=== PATIENT | male | born 2000 | race Caucasian/White ===

== ENCOUNTER 2021-11-25 11:55 | Emergency (ER) | payer OTHER, SELFPAY ==
[2021-11-25 11:55] VITALS: BP 164/81; PULSE 73; RESP 14; TEMP 36.2; O2SAT 97; BMI 24.7
--- NOTE | 2021-11-25 12:15 | RAD_ITS ---
STUDY: X-RAY - RIGHT FOOT CLINICAL: Male, 21 years old. trauma, pain PAIN AFTER PLAYING SOCCERx1 WEEK TECHNIQUE: 3 view(s) of the foot. COMPARISON: None. FINDINGS: Normal talus, calcaneus, and tarsal bones. Normal visualized subtalar, talonavicular, calcaneocuboid, tarsal and tarsometatarsal articulations. Normal metatarsi. Normal metatarsophalangeal joint of the great toe. Normal tibial and fibular sesamoid bones. Normal interphalangeal joint of the great toe. Normal phalanges of the great toe. Normal second through fifth metatarsophalangeal joints. Normal interphalangeal joints and phalanges of the lesser toes. The soft tissue structures are unremarkable. There is no demonstrated fracture. RAD/Foot min 3 Views IMPRESSION: Normal x-ray examination of the foot. Electronically Signed: Jairon New MD at 12:40 EDT ,
--- NOTE | 2021-11-25 12:18 | EX.ED.DYSGE1 ---
HPI History of Present Illness Chief Complaint: Lower Extremity Injury Informant: patient Narrative Narrative: This is a healthy male who presents to the emergency department with a week of right distal foot pain mostly dorsally. He thinks he hurt it playing soccer a week ago. It was getting better. He played soccer again today and is worse. Kicking or running makes it worse and rest makes it better. No other areas of pain. PFSH PFSH Home Medications naproxen 500 mg PO BID #14 tab 11/25/21 [Rx Last Taken Unknown] Allergy/AdvReac Type Severity Reaction Status Date / Time No Known Allergies Allergy Verified 11/25/21 11:57 Social History Smoking Status: Never smoker ROS ROS ED Constitutional Constitutional ED: Denies chills or fever(s) Musculoskeletal Musculoskeletal: Reports arthralgias and other Details: See history of present illness. Integumentary Denies Abrasions or rash Neurologic Neurologic: Denies paresthesias or weakness EXAM Physical Exam Const Vital Signs: 11/25/21 11:55 Temperature 97.2 F L Temperature Source Temporal Pulse Rate 73 Respiratory Rate 14 Blood Pressure 164/81 H Blood Pressure Mean 108 Pulse Ox 97 Oxygen Delivery Method Room Air Positive well nourished and well developed General Appearance ED: well developed and NAD Resp normal respiratory effort Back/Spine Lumbar Spine / Lower Back: Negative for lumbar spinal tenderness Extremity normal to inspection Extremity Narrative: Foot shows no sign of notable swelling or contusions. There is some mild nonfocal tenderness to the distal aspect of his right foot mostly overlying second third and fourth distal metatarsal. No erythema. No sign of fungal infection. There is no tenderness at the proximal fifth metatarsal. No tenderness at the ankle leg or knee. No swelling. Neuro no sensory deficits noted Sensorium / Orientation: alert Skin no rashes or lesions noted, no wounds and skin turgor normal MDM MDM MDM Narrative Medical decision making narrative: Three-view x-ray of the patient's foot looked at by me and read by radiology shows no acute process. I see no fracture. I do not see any periosteal elevation consistent with stress type fracture although this could occur later. Patient should use rice therapy. We will write for some Naprosyn. If it still bothering him in a week or so it should be maggy-rayed looking for stress fracture. He should limit activity until that time. At this point he appears to have a right ligamentous foot strain. Although stress fracture is not completely ruled out because of the timing. Diagnosis: Right ligamentous foot strain Radiography Diagnostic Testing: Clinical Impression(s) from Imaging Studies Foot X-Ray 11/25/21 12:15 IMPRESSION: Normal x-ray examination of the foot. Electronically Signed: Jairon New MD at 12:40 EDT Reading Location ID and State: [facility] / [place] , Service support , Discharge Plan Triage Chief Complaint: Lower Extremity Injury ED Provider: Mervin Coleman Dx/Rx/DC Orders Clinical Impression: Right foot strain Instructions: ED Foot Sprain Prescriptions: New naproxen 500 MG tablet 500 mg PO BID Qty: 14 RF: 0 Primary Care Provider: Roseline Iqbal Referrals: Roseline Iqbal MD [Primary Care Provider] - 1 Week if not improving Disposition Disposition: Home, Self Care
== END 2021-11-25 13:20 | disposition home or self-care (01) ==
PROVIDERS: Emergency Provider Emergency Medicine; PCP Pediatrics; Visit Provider Emergency Medicine
DX: S93.601A Unspecified sprain of right foot, initial encounter (principal); X58.XXXA Exposure to other specified factors, initial encounter; Y93.66 Activity, soccer; Y99.8 Other external cause status
CPT/HCPCS: 73630; 99282

== ENCOUNTER 2023-08-04 17:00 | Emergency (ER) | payer OTHER, SELFPAY ==
[2023-08-04 17:01] VITALS: BP 147/75; PULSE 61; RESP 18; TEMP 36.9; O2SAT 100; BMI 27.0
--- NOTE | 2023-08-04 19:19 | ED.RN ---
Pt came to triage desk and stated he was leaving.
== END 2023-08-04 19:21 | disposition left against medical advice (07) ==
LOC: ED 19:20
PROVIDERS: PCP Pediatrics
DX: Z53.21 Procedure and treatment not carried out due to patient leaving prior to being seen by health care provider (principal)

== ENCOUNTER 2024-04-14 08:20 | Emergency (ER) | payer OTHER, SELFPAY ==
[2024-04-14 08:20] VITALS: PULSE 74; RESP 16; TEMP 35.8; O2SAT 97; BMI 27.8
--- NOTE | 2024-04-14 08:25 | RAD_ITS ---
STUDY: X-RAY CHEST REASON FOR EXAM: Male, 24 years old. 2 day history of right-sided chest pain. TECHNIQUE: PA and lateral views of the chest. COMPARISON: None. FINDINGS: The lungs are clear and expanded. There is no demonstrated pleural abnormality. Normal size heart. Normal mediastinum and solis. Normal visualized pulmonary arteries. Normal visualized aortic arch and descending thoracic aorta. Normal visualized thoracic spine. Normal visualized ribs, clavicles, and shoulders. There is no demonstrated abnormality of the visualized soft tissue structures of the upper abdomen. RAD/Chest PA and Lateral IMPRESSION: Normal x-ray examination of the chest. Electronically Signed: Lawrence Graf MD at 9:01 EDT ,
--- NOTE | 2024-04-14 08:25 | EKG12_ITS ---
Test Reason : CP Blood Pressure : / mmHG Vent. Rate : 066 BPM Atrial Rate : 066 BPM P-R Int : 172 ms QRS Dur : 080 ms QT Int : 392 ms P-R-T Axes : 080 088 051 degrees QTc Int : 410 ms Normal sinus rhythm Normal ECG Confirmed by Sterling Ugalde ([id number]), primer expeditor and drier SHERRI GRIMES ([id number]) on 04/15/2024 9:13:29 AM Referred By: Confirmed By:Sterling Ugalde
--- NOTE | 2024-04-14 08:29 | NURSING ---
NO OLD EKGS
--- NOTE | 2024-04-14 08:37 | EDS_ITS ---
HPI History of Present Illness Chief Complaint: Chest Pain Informant: patient Onset/Context/Timing Onset: Days Activity at onset: gradual Timing: Continuous Quality: Positive for Aching Current Severity: Mild Maximum Severity: Mild Worsened By: Breathing Relieved By: Nothing Associated Symptoms: Negative for Nausea, Vomiting, Diaphoresis, Dyspnea, Cough, Fever, Lightheadedness, Acid Reflux or Palpitations Narrative Narrative: Healthy 23-year-old male whose had right-sided chest discomfort for the last 3 days beginning Friday morning. Denies any fall injury or trauma. 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 With physical use in the trauma. Is not having any exertional dyspnea or exertional chest pain. Feels like a soreness on the right side of his chest. Worse with a deep breath. He does not feel short of breath. No history of DVT or PE. No family history of clots. He has had no recent travel, surgery or immobilization. He said no calf pain or swelling. Prior Similar Symptoms: No Recent Illness/Hospitalization: No CVD Risk Factors: Negative for Hypertension, Diabetes, Hypercholesterolemia, Family History 1' </=55 or Smoking PE Risk Factors: Negative for Recent Travel/Surgery, Recent Immobilization, Prior DVT or PE, Cancer or OCP + Smoking + >/=35 TAD Risk Factors: Negative for Marfan's Syndrome PFSH PFSH Medical History no medical history no medical history Home Medications ?Medication ?Instructions ?Recorded ?Last Taken ?Type naproxen 500 mg tablet 500 mg PO BID #14 tabs 11/25/21 Unknown Rx Allergy/AdvReac Type Severity Reaction Status Date / Time No Known Allergies Allergy Verified 04/14/24 08:22 Social History Smoking Status: Never smoker ROS ROS ED ROS Narrative Denies recent illness. No significant cough or fever. No shortness of breath. No exertional symptoms. Constitutional Constitutional ED: Denies chills or fever(s) Eyes Eyes: Reports none ENT ENT ED: Denies ear pain Cardiovascular Cardiovascular: Reports as per HPI and chest pain; Denies palpitations or racing heartbeat Respiratory/Chest Respiratory/Chest: Denies cough or dyspnea Gastrointestinal Gastrointestinal: Denies abdominal pain Genitourinary Genitourinary ED: Denies dysuria or hematuria Musculoskeletal Musculoskeletal: Denies arthralgias or back pain Integumentary Denies abscess or Abrasions Neurologic Neurologic: Denies headache(s) Psychiatric Psychiatric: Denies anxiety or depression Endocrine Endocrinology: Denies cold intolerance Hematologic/Lymphatic Hematologic/Lymphatic: Denies easy bleeding Allergic/Immunologic Allergic/Immunologic ED: Denies mouth swelling EXAM Physical Exam Narrative Exam Narrative: Well-appearing 24-year-old male. Vital signs stable afebrile. Pulse ox 97% on room air. No signs of hypoxia. H EENT exam normal. Neck nontender JVD. Lungs with auscultation bilaterally. Heart regular rate rhythm no murmur. Chest wall mild discomfort with palpating his right chest no redness or warmth no bruising. No signs of trauma or contusions. No rib abnormalities. No crepitance. Abdomen soft nontender. Moving all 4 extremities. Radial pulses equal and symmetrical. Calves are nontender without edema or cords. Neurologically is awake and alert with no focal motor deficits. Benign exam. Const Vital Signs: 04/14/24 08:20 04/14/24 08:35 04/14/24 09:20 Temperature 96.5 F L Temperature Source Temporal Pulse Rate 74 72 Respiratory Rate 16 15 Respiratory Effort Normal Non-Labored Blood Pressure 124/56 H Blood Pressure Mean 78 Pulse Ox 97 98 Oxygen Delivery Method Room Air Room Air 04/14/24 09:36 04/14/24 10:00 Temperature Temperature Source Pulse Rate 53 L Respiratory Rate 16 Respiratory Effort Blood Pressure 123/64 H Blood Pressure Mean 83 Pulse Ox 97 98 Oxygen Delivery Method Room Air Room Air Positive well nourished and well developed; Negative for obese, cachectic, contractures or unkempt General Appearance ED: well developed and NAD; Negative for unkempt, cachectic, contractures or pallor Nutritional Appearance: Negative for cachectic or obese HEENT Reports moist mucous membranes normocephalic and atraumatic; Negative for trauma or tenderness Eyes PERRL and EOMs intact bilaterally General Eye ED: Negative for pale conjunctiva or scleral icterus Neck no lymphadenopathy, supple and no JVD General: Negative for tenderness or other Chest Wall inspection of chest normal and palpation of chest normal Chest Narrative: Mild tenderness right chest wall. No signs of trauma. No bruising. No crepitance. No redness or warmth. Chest: tenderness Resp normal respiratory effort and clear to auscultation bilaterally Effort and Inspection: Negative for respiratory distress Auscultation: Negative for rales, rhonchi, wheezes or diminished lung sounds Cardio regular rate, regular rhythm, S1 normal heart sound, S2 normal heart sound and no murmurs Rate: Negative for bradycardia or tachycardic Rhythm: Negative for abnormal rhythm Peripheral Pulses: pulses 2+ throughout GI normal to inspection, nondistended, normoactive bowel sounds, soft to palpation, non-tender, non-distended and no masses Back/Spine no CVA tenderness and no thoracic nor lumbar tenderness General Back: Negative for CVA tenderness Cervical Spine: Negative for cervical spine tenderness Extremity normal to inspection General Extremety ED: Negative for edema, pulses abnormal or tenderness General Extremity: Negative for edema or pulses abnormal Neuro oriented x3 and CN's II-XII intact bilaterally Sensorium / Orientation: awake, alert, oriented to person, oriented to place and oriented to time; Negative for confused or lethargic Motor Exam: strength 5/5 throughout Psych mental status grossly normal Appearance: Negative for unkempt Attitude: No agitated Mood & Affect: Negative for depressed, anxious or tearful Skin no rashes or lesions noted and no wounds General Skin Exam: Negative for jaundice or pallor Rashes: No rashes noted Trauma: Negative for abrasion or laceration Heart Score History: Slightly/Non-Suspicious ECG: Normal Age: </= 45 years Risk Factors: No Risk Factors Troponin: </= Normal Limit Score: 0 MDM MDM MDM Narrative Medical decision making narrative: 24-year-old male atypical right-sided chest discomfort may be just chest wall strain. Is some mild tenderness. Is not very impressive. He has got no cardiac history or risk factors is gone no family history of clotting disorders nor any risk factors for DVT or PE or prior history. Undergo cardiac workup. He does state that he takes Motrin at home and improves it when the Motrin wears off the discomfort returns. Repeat exam patient is doing well at 10:35 AM. No specific cause for his discomfort may be musculoskeletal chest wall pain he does have some mild discomfort with deep palpation. Motrin and Tylenol for pain. Follow-up if not improving. Return if worse. History & Record Review Discussion w/independent historian: Patient Additional record(s) reviewed:: Prior inpatient record, Prior outpatient record, Prior ED visit and Prior labs Lab Data Attestation: I reviewed the patient's lab results. Lab results narrative: CBC normal. White count of 5. H&H 15 and 45. Platelets 250. Chemistries normal 4. BUN 27 creatinine 1.1. Glucose 100. Troponin 4. And D- dimer less than 0.27. Labs: Laboratory Results - last 24 hr 04/14/24 09:47 WBC 5.9 RBC 5.32 Hgb 15.6 Hct 44.5 MCV 83.6 MCH 29.3 MCHC 35.1 RDW Std Deviation 36.3 RDW Coeff of Patricia 12.0 Plt Count 250 MPV 9.5 Immature Gran % (Auto) 0.300 Neut % (Auto) 54.6 Lymph % (Auto) 33.4 Petroleum % (Auto) 9.8 Eos % (Auto) 1.2 Baso % (Auto) 0.7 Absolute Neuts (auto) 3.2 Absolute Lymphs (auto) 1.97 Nucleated RBC % 0 D-Dimer Quant (PE/DVT) < 0.27 L Sodium 141 Potassium 4.2 Chloride 109 H Carbon Dioxide 28.0 Anion Gap 4 L BUN 27 H Creatinine 1.16 Estim Creat Clear Calc 117.41 Est GFR (MDRD) Af Amer 100 Est GFR (MDRD) Non-Af 83 BUN/Creatinine Ratio 23.3 H Glucose 100 Calcium 9.0 Troponin I High Sens 4 Radiography Chest X-Ray - ED: 2 View, Read by ED Physician, Read by Radiologist, Normal, Heart, Lungs, Mediastinum, Bony Structures and No Acute Disease Diagnostic Testing: Clinical Impression(s) from Imaging Studies Chest X-Ray 04/14/24 08:25 IMPRESSION: Normal x-ray examination of the chest. Electronically Signed: Lawrence Graf MD at 9:01 EDT , Chest x-ray, 2 views AP and lateral, interpreted by myself and the radiologist shows normal cardiac silhouette. Normal lung murillo. No pneumothorax. No infiltrate. Rhythm Strip Rhythm Strip: Sinus Rhythm Rate: 66 Ectopy: None EKG Initial EKG: Attestation: I personally reviewed and interpreted this EKG as follows: Interpretation: Sinus Rhythm and No Acute Injury Pattern Comments: Normal sinus rhythm rate of 66 no acute WA no ischemia. Prior EKG tracings: not available for review Prior: No Prior Discharge Plan Triage Chief Complaint: Chest Pain ED Provider: Larry Calvillo Dx/Rx/DC Orders Clinical Impression: Chest pain, Chest wall muscle strain Instructions: ED Chest Wall Strain Prescriptions: No Action naproxen 500 MG tablet 500 mg PO BID Qty: 14 0RF Primary Care Provider: Care Physician,No Primary Referrals: Roseline Iqbal MD [Non-Staff] - As Needed Activity Restrictions/Additional Instructions: Your tests are all normal. Including your EKG and chest x-ray and lab work. This may be a strain of your chest wall. Motrin for pain and inflammation and Tylenol for pain. Ice to your chest wall. Follow-up with your doctor if not improving. Print Language: Arabic Disposition Disposition: Home, Self Care
--- NOTE | 2024-04-14 08:39 | NURSING ---
NO OLD EKGS
[2024-04-14 09:20] VITALS: BP 124/56; PULSE 72; RESP 15; O2SAT 98
[2024-04-14 09:36] VITALS: O2SAT 97
[2024-04-14 09:56] LABS: Absolute Lymphocyte Count 1.97 X10^3/uL (0.83-4.51); Absolute Neutrophil Count 3.2 X10^3/uL (2.0-7.7); Basophil# 0.04 X10^3/uL; Basophil% 0.7 % (0-1); Eosinophil# 0.07 X10^3/uL; Eosinophils% 1.2 % (0-5); Hematocrit 44.5 % (40-54); Hemoglobin 15.6 g/dL (13.0-16.5); Lymphocyte # 1.97 X10^3/ul (0.83-4.51); Lymphocyte % 33.4 % (19-41); Mean Corp Hgb Conc 35.1 g/dL (32-36); Mean Corpuscular Hgb 29.3 pg (27.0-32.0); Mean Corpuscular Volume 83.6 fL (80-94); Mean Platelet Vol. 9.5 fl (6.2-12.0); Monocyte# 0.58 X10^3/uL; Monocyte% 9.8 % (0-10); NRBC Flagged by Analyzer 0 % (0-5); Neutrophil # 3.21 X10^3/uL (2.7-7.7); Neutrophil % 54.6 % (47-70); Platelet Count 250 K/mm3 (150-450); RBC Distribution Width SD 36.3 fl (35.1-43.9); Red Blood Count 5.32 M/mm3 (4.6-6.2); White Blood Count 5.9 K/mm3 (4.4-11.0)
[2024-04-14 10:00] VITALS: BP 123/64; PULSE 53; RESP 16; O2SAT 98
[2024-04-14 10:13] LABS: Anion Gap 4 (5-15); BUN 27 mg/dL (7-18); BUN/Creat Ratio 23.3 RATIO (10-20); Chloride 109 mmol/L (98-107); Creatinine, Serum 1.16 mg/dL (0.70-1.30); D-Dimer Quantitative (DVT/PE) < 0.27 FEU/ug/m (0.27-0.49); EST Glomerular Filtration Rate 83 mL/min (>60); Est Glom Filt Rate - Afr Amer 100 mL/min (>60); Estimated Creatinine Clearance 117.41 ml/min; Glucose 100 mg/dL (74-106); Potassium 4.2 mmol/L (3.5-5.1); Sodium Level 141 mmol/L (136-145); Troponin-I HS 4 pg/mL (3.0-78.0)
[2024-04-14 10:42] VITALS: BP 131/73; PULSE 51; RESP 18; TEMP 36.3; O2SAT 98
== END 2024-04-14 10:46 | disposition home or self-care (01) ==
PROVIDERS: Emergency Provider Emergency Medicine; Visit Provider Emergency Medicine
DX: S29.011A Strain of muscle and tendon of front wall of thorax, initial encounter (principal); X58.XXXA Exposure to other specified factors, initial encounter
CPT/HCPCS: 71046; 80048; 84484; 85025; 85379; 93005; 99284; A4216

== ENCOUNTER → 2025-03-29 | Outpatient (CLI) | payer OTHER, SELFPAY ==
--- NOTE | 2025-03-29 14:51 | RAD_ITS ---
EXAM: XR Right Ankle Complete, 3 or More Views CLINICAL INDICATION: PAIN TECHNIQUE: Frontal, lateral and oblique views of the right ankle. COMPARISON: No relevant prior studies available. FINDINGS: BONES/JOINTS: See below. SOFT TISSUES: Soft tissue swelling without acute fracture. RAD/Ankle min 3 Views IMPRESSION: 1. Soft tissue swelling without acute fracture. 2. If symptoms persist, further evaluation with CT is recommended. Reading Location: [facility]
== END | disposition home or self-care (01) ==
LOC: MTRAD 14:51
PROVIDERS: Referring Provider Physician Assistant; Visit Provider Physician Assistant
DX: M25.571 Pain in right ankle and joints of right foot (principal)
CPT/HCPCS: 73610